=== PATIENT | male | born 1990 | race Caucasian/White ===

== ENCOUNTER 2019-06-13 09:46 | Inpatient (IN) | payer SELFPAY ==
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
[2019-06-13] MEDS ORDERED: Lactated Ringers 1000 ML Bag* 1,000 ML IV SCH (13:00)
[2019-06-13 13:14] LABS: Hematocrit 40 % (42-52); Hemoglobin 13.6 g/dL (14.0-18.0); Mean Corpuscular HGB Conc 34 g/dL (31-36); Mean Corpuscular Hemoglobin 32 pg (27-31); Mean Corpuscular Volume 94 fL (80-94); Red Blood Count 4.26 10^6 /uL (4.18-5.48); Red Cell Distribution Width 13 % (10-15); White Blood Count 10.9 10^3/uL (3.5-10.8)
[2019-06-13 13:31] LABS: Albumin 3.1 g/dL (3.2-5.2); Albumin/Globulin Ratio 1.6 (1-3); Alkaline Phosphatase 40 U/L (34-104); Anion Gap 5 mmol/L (2-11); BUN/Creatinine Ratio 19.7 (8-20); Blood Urea Nitrogen 23 mg/dL (6-24); CO2 Carbon Dioxide 21 mmol/L (22-32); Calcium 7.4 mg/dL (8.6-10.3); Chloride 108 mmol/L (101-111); EGFR African American 89.8 (>60); EGFR Non-African American 74.2 (>60); Globulin 1.9 g/dL (2-4); Glucose 95 mg/dL (70-100); Potassium 4.1 mmol/L (3.5-5.0); Sodium 134 mmol/L (135-145)
[2019-06-13 13:36] LABS: Troponin I 15.82 ng/mL (<0.03)
[2019-06-13 13:48] LABS: ALT 3018 U/L (7-52); AST 3063 U/L (13-39); Creatine Kinase 13818 U/L (10-223)
[2019-06-13 13:55] LABS: ABS Lymphocytes 1.9 10^3/ul (1.0-4.8); ABS Monocytes 0.5 10^3/ul (0-0.8); ABS Neutrophils 8.5 10^3/ul (1.5-7.7); Eosinophil % 0.2 %; Mean Platelet Volume 7.7 fL (7.4-10.4); Platelet Count 99 10^3/uL (150-450)
[2019-06-13] MEDS ORDERED: cefTRIAXone(*) 1 GM in NS 0.9% 50 ML* 50 ML IVPB SCH (14:00)
[2019-06-13 14:27] LABS: CKMB ng/mL > 297.0 ng/mL (0.6-6.3)
[2019-06-13] MEDS: Lactated Ringers 1000 ML Bag* 1,000 ML IV SCH ×2 (14:43→23:36)
--- NOTE | 2019-06-13 16:06 | ECHO ---
*[facility]* [place] [address] Fax #: [phone] Limited Transthoracic Echocardiogram Patient: Reinier Pham : 1990 Study Date: 06/13/2019 Age: 29 Gender: M HR: 85 bpm Height: 68.1 in /173 cm BSA: 1.98 m^2 Weight: 176 lb /80 kg BMI: 26.7 kg/m^2 *[employer]: * Karly Shelley [facility] *Referring Physician: * Steven Kebede MD *Reading Physician: * Steven Kebede MD Indications: Congestive Heart Failure. History: Overdose POTATO PEELER. Conclusions Summary: Limited study, see full echocardiogram from this morning. Markedly positive bubble study with large volume right to left shunting of uncertain source. The LVEF appears qualitatively normal on apical 4 chamber view only. The right ventricle appears dilated and dysfunctional. Study data: Transthoracic echocardiogram, limited study. Procedure: Transthoracic echocardiography was performed. Image quality was good. A bubble study was performed. Location: Bedside. Patient status: Inpatient. Patient room number: 431. Rhythm: Normal sinus rhythm. Findings Atrial septum: An ASD is demonstrated by color Doppler and agitated saline contrast. Bubble Study image 1. Prepared and electronically signed by Steven Kebede MD 06/13/2019 16:05
--- NOTE | 2019-06-13 16:34 | CONSULT ---
Subjective Date of Service: 06/13/19 Interval History: Date of transfer from [facility] 06/13/2019 Service: Hospitalist PCP: None CC: Drug over, unresponsiveness Reason for consult: Abnormal echocardiogram and EKG HPI Reinier Pham is a 29 year old man with a history of polysubstance abuse. He was in his usual state of health recently. 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 He was found with a drug overdose and unresponsive that responded to IV narcan reportedly (had no opiates on to screen). The exact substance in form of a pill he took is uncertain. He was found with multisystem organ dysfunction including ZHENG, ischemic hepatitis, rhabdomyolosis (CK out of proportion to troponin) and myocyte injury. Clinical presentation was not consistent with a type 1 plaque disruption [place]. Presumed mechanism was related prolonged hypoxia. He was given 5 liters of saline originally that continues and is currently with ascites and pleural effusion. Past Medical History Drug abuse, heroin overdose last year Past Surgical History: Cleft palate repair during childhood. Past Family History: Father had liver cancer at the age of 30+, he was a heavy alcoholic. Mother had no significant medical problems. Past Social History: Lives with his fiance and 2 kids in [facility]. Drug abuse He denies any significant alcohol use allergies: nkda Medications Active Medications: Lactated Ringer's (Lactated Ringers 1000 Ml Bag*) 1,000 mls @ 250 mls/hr IV PER RATE [facility] Last Admin: 06/13/19 14:43 Dose: 250 mls/hr Ceftriaxone Sodium 1 gm/ (Sodium Chloride) 50 mls @ 100 mls/hr IVPB Q24H [facility] Last Admin: 06/13/19 14:43 Dose: 100 mls/hr Review of Systems - Measurements Intake and Output: Intake and Output Last 24 Hours 06/11/19 06/12/19 06/13/19 06/14/19 06:59 06:59 06:59 06:59 Intake Total 75 Balance 75 Weight 176 lb Intake: IV Fluids 25 ABX 25 IVPB 50 ABX 50 Oral 0 - Review of Systems Constitutional Symptoms: Negative: Weakness, Fatigue Dermatology: Negative: Rash, Skin Lesions HEENT: Negative: Change in Hearing, Vertigo Eyes: Negative: Change in Vision, Double Vision Thyroid: Negative: Palpitations, Weight Loss, Weight Gain Pulmonary: Negative: Exercise Intolerance, Home Oxygen Cardiology: Negative: Chest Pain, Shortness of Breath, Palpitations, Swelling of Ankles, Peripheral Vascular Dis, Edema, Faintness, Syncope, Claudication, Paroxysmal Nocturnal Dyspnea, Orthopnea Gastroenterology: Negative: Blood in Stools, Haematemesis, Melena Genital - Urinary: Negative: Dysuria, Hematuria Musculoskeletal: Negative: Joint Pain, Joint Stiffness Endocrinology: Negative: Polydipsia, Polyuria Hematologic/Lymphatic: Negative: Use of Anticoagulant, Use of Antiplatelet Drugs Neurology: Negative: Hx of Stroke\TIA, Hx Seizures Psychiatry: Negative: Unusual Anxiety, Suicidal Ideation Allergic/Immunologic: Negative: Hx HIV, Immunocompromise Review of Systems Statement: All other review of systems negative, unless stated above. Objective Vital Signs: Temp Pulse Resp BP Pulse Ox 98.3 F 89 20 118/44 91 06/13/19 15:06/13/19 15:06/13/19 15:06/13/19 15:06/13/19 15:09 Oxygen Devices in Use Now: None Appearance: nad, not ill appearing Ears/Nose/Mouth/Throat: Clear Oropharnyx, Mucous Membranes Moist Neck: NL Appearance and Movements; NL JVP, Trachea Midline Respiratory: Symmetrical Chest Expansion and Respiratory Effort, Clear to Auscultation Cardiovascular: NL Sounds; No Murmurs; No JVD, RRR, No Edema Abdominal: NL Sounds; No Tenderness; No Distention Extremities: No Edema Skin: No Rash or Ulcers Neurological: Alert and Oriented x 3 Laboratory Results: 06/13/19 12:57 06/13/19 12:57 Total Bilirubin 0.70 mg/dL (0.2-1.0) 06/13/19 12:57 AST 3063 U/L (13-39) H 06/13/19 12:57 ALT 3018 U/L (7-52) H 06/13/19 12:57 Alkaline Phosphatase 40 U/L (34-104) 06/13/19 12:57 CK-MB (CK-2) > 297.0 ng/mL (0.6-6.3) H 06/13/19 12:57 Total Protein 5.0 g/dL (6.4-8.9) L 06/13/19 12:57 Albumin 3.1 g/dL (3.2-5.2) L 06/13/19 12:57 Globulin 1.9 g/dL (2-4) L 06/13/19 12:57 Albumin/Globulin Ratio 1.6 (1-3) 06/13/19 12:57 06/13/19 12:57 Troponin I 15.82 H* Initial labs 06/12/2019 cr 2.7 ast 1153, alt 1101, 0.17, wbc 23 album 3 3. hepatitis screen negative urine drug screen (06/11): amphetamine positive, benzo positive (the results from [facility] not clear) Diagnostic Imaging: Exam Date: 06/13/19 CT ABD/PEL W/O IMPRESSION: Small to moderate amount of ascites is noted. Likely hepatic steatosis. Bilateral pleural effusions are noted. TTE 06/12: mild decrease in global wall motion, EF 45-50%, Moderate RV dilation with mild to moderately reduced right ventricular function and mild septal abnormality RV pressure and/or volume overload normal estimated PASP by TR velocity with bubble study later Markedly + bubble study with normal color flow on septum EKG Data: ekg today shows NSR, long qtc, right precordial t wave changes Assessment/Plan 1. Multisystem organ dysfunction including myocyte injury secondary to drug overdose with presumed hypoxia mechanism - Improving 2. 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 Polysubstance drug abuse. I am not sure how much of the RV dysfunction is acute vs. chronic. The shunt is concerning for a chronic component although acute (or repetitive) central sleep apnea related to [employer] depressants may have also been playing a role in the RV dysfunction. A congenital intracardiac shunt such as anomalous pulmonary vein return or an ASD is very possible but the latter was not appreciated on the transthoracic color doppler imaging. There is some laboratory and imaging evidence for chronic liver disease. For now would recommend a CT pulmonary angiogram (discussed with Dr. Reeder) to begin evaluation for hepatopulmonary syndrome. Given the fact that he was entirely asymptomatic prior to admission an urgent PAWEL, evaluation for shunt closure, etc is not needed. He was counseled that any further elicit substance abuse (even in the near future) can increase the risk of things including but not limited to . From a cardiac standpoint, regardless of CT findings, will arrange cardiology follow up and plan on repeat transthoracic echocardiogram in about 1 month with substance abuse abstinence to re-evaluate his RV size and function to help guide further evaluation. Would begin to keep I/O negative in the near future. An order for a repeat EKG tomorrow to re-evaluate QTc was placed Thank you for allowing me to participate in the cardiovascular care of this patient. Please do not hesitate to contact me with questions or concerns.
[2019-06-13 16:39] LABS: Troponin I 12.46 ng/mL (<0.03)
[2019-06-13 16:49] LABS: Creatine Kinase 12890 U/L (10-223)
[2019-06-13] MEDS ORDERED: Ondansetron INJ* 2 MG/ML VIAL IV PRN (18:30)
[2019-06-13 19:02] LABS: Urine Appearance Clear; Urine Bilirubin Negative (Negative); Urine Blood Negative (Negative); Urine Color Yellow; Urine Glucose Negative (Negative); Urine Ketones 1+ (Negative); Urine Nitrite Negative (Negative); Urine Protein Negative (Negative); Urine Specific Gravity 1.021 (1.010-1.030); Urine Urobilinogen Negative (Negative)
[2019-06-14 04:04] LABS: ABS Lymphocytes 1.8 10^3/ul (1.0-4.8); ABS Monocytes 0.5 10^3/ul (0-0.8); ABS Neutrophils 6.5 10^3/ul (1.5-7.7); Eosinophil % 0.5 %; Hematocrit 38 % (42-52); Hemoglobin 13.1 g/dL (14.0-18.0); Lymphocyte % 19.8 %; Mean Corpuscular HGB Conc 35 g/dL (31-36); Mean Corpuscular Hemoglobin 33 pg (27-31); Mean Corpuscular Volume 94 fL (80-94); Mean Platelet Volume 7.5 fL (7.4-10.4); Nucleated Red Blood Cells % 0.1; Platelet Count 89 10^3/uL (150-450); Red Blood Count 4.01 10^6 /uL (4.18-5.48); Red Cell Distribution Width 13 % (10-15); White Blood Count 8.9 10^3/uL (3.5-10.8)
[2019-06-14 04:09] LABS: INR 1.47 (0.82-1.09)
[2019-06-14 04:21] LABS: Albumin 3.1 g/dL (3.2-5.2); Albumin/Globulin Ratio 1.7 (1-3); BUN/Creatinine Ratio 16.2 (8-20); EGFR African American 108.9 (>60); Globulin 1.8 g/dL (2-4); Potassium 4.1 mmol/L (3.5-5.0); Total Protein 4.9 g/dL (6.4-8.9)
[2019-06-14] MEDS: Lactated Ringers 1000 ML Bag* 1,000 ML IV SCH ×4 (06:19→22:13)
[2019-06-14] MEDS ORDERED: Furosemide IV* 10 MG/ML 2 ML VIAL (20 MG) IV ONE (07:11)
--- NOTE | 2019-06-14 07:17 | PN ---
Hospitalist Progress Note Date of Service: 06/14/19 Patient gained weight significantly from 79kg to 82kg. I/O 4179/800ml Echocardiogram yesterday has already shown RV overload Plan: be cautious with I/O IV lasix 20mg once Aim for negative balance.
--- NOTE | 2019-06-14 11:42 | PN ---
Subjective Date of Service: 06/14/19 Interval History: Mr. Pham is feeling a little better today. He reports urine output and color has improved back to normal. Has a mild cough with deep breathing and a bit of a headache. Aching on back and buttocks are improved from yesterday. Denies CP, SOB. No concerns from nursing. Family History: Unchanged from Admission Social History: Unchanged from Admission Past Medical History: Unchanged from Admission Objective Active Medications: Lactated Ringer's (Lactated Ringers 1000 Ml Bag*) 1,000 mls @ 250 mls/hr IV PER RATE [facility] Ceftriaxone Sodium 1 gm/ (Sodium Chloride) 50 mls @ 100 mls/hr IVPB Q24H [facility] Ondansetron HCl (Zofran Inj*) 4 mg IV Q4H PRN nausea Vital Signs - 8 hr 06/14/19 06/14/19 07:14 08:00 Temperature 97.3 F Pulse Rate 80 Respiratory 18 20 Rate Blood Pressure 112/72 (mmHg) O2 Sat by Pulse 90 Oximetry Oxygen Devices in Use Now: None Appearance: Young adult male lying in bed in NAD Ears/Nose/Mouth/Throat: Mucous Membranes Moist Neck: NL Appearance and Movements; NL JVP, Trachea Midline Respiratory: Symmetrical Chest Expansion and Respiratory Effort, Clear to Auscultation Cardiovascular: NL Sounds; No Murmurs; No JVD, RRR Extremities: No Edema Neurological: Alert and Oriented x 3 Lines/Tubes/Other Access: Clean, Dry and Intact Peripheral IV Nutrition: Taking PO's Result Diagrams: 06/14/19 03:55 06/14/19 03:55 Assess/Plan/Problems-Billing Assessment: Mr. Pham is a 29 yo M with PMH of heroin abuse and overdose last year; presented to [facility] ED after being found down in his car after an unknown ingestion, subsequently transferred to [facility] d/t rising trops and CK. - Patient Problems (1) Rhabdomyolysis Code(s): M62.82 - RHABDOMYOLYSIS Comment: - Found in car, thought to be down all night (8+ hours?) - CK continues to trend down - Continue aggressive IV hydration (2) Right ventricular dysfunction Code(s): I51.9 - HEART DISEASE, UNSPECIFIED Comment: - Acute (apnea) vs chronic (congential shunting) - Attempt to keep I&O negative - Will check CTA for hepatopulmonary syndrome when CK <5,000 - Outpatient f/u with Cardiology for repeat echo in 1 month - Continue furosemide (3) Elevated troponin Code(s): R79.89 - OTHER SPECIFIED ABNORMAL FINDINGS OF BLOOD CHEMISTRY Comment : - Peaked at 23 at [facility], now trending down - Secondary to drug ingestion - Appreciate Cardiology consult - QTc improving (4) Transaminitis Code(s): R74.0 - NONSPEC ELEV OF LEVELS OF TRANSAMNS & LACTIC ACID DEHYDRGNSE Comment: - LFTs trending down - Secondary to ingestion, but suspect there may be some component of chronic liver disease - CT showing small to moderate ascites and likely hepatic steatosis (5) Ingestion of unknown medication Code(s): T50.901A - POISONING BY UNSP DRUG/MEDS/BIOL SUBST, ACCIDENTAL, INIT Comment: - Patient reported he thought he was given Valium by a friend - Woke after receiving Narcan, so question if there was a narcotic ingestion - Tox screen at [facility] positive for amphetamines and benzos - Suspect multisystem organ dysfunction is d/t hypoxia, hypotension, hypothermia from ingestion (6) Thrombocytopenia Code(s): D69.6 - THROMBOCYTOPENIA, UNSPECIFIED Comment: - Stable - No evidence of hemolytic process by Pathologist interpretation (7) ZHENG (acute kidney injury) Code(s): N17.9 - ACUTE KIDNEY FAILURE, UNSPECIFIED Comment: - Resolved (8) DVT prophylaxis Code(s): Z29.9 - ENCOUNTER FOR PROPHYLACTIC MEASURES, UNSPECIFIED Comment: - SCDs (9) Full code status Code(s): Z78.9 - OTHER SPECIFIED HEALTH STATUS Comment: Status and Disposition: Inpatient. Anticipate d/c home when medically stable, hopefully tomorrow if labs continue to improve. Attending: Janay Elizabeth
--- NOTE | 2019-06-14 16:24 | PN ---
Subjective Date of Service: 06/14/19 Interval History: f/u RV dysfunction, right to left shunt, multisystem organ dysfunction/myocyte injury secondary to drug overdose late entry, seen this morning feels well no cp or dyspnea given diuretic with good effect ekg this AM reviewed, qtc improved, right precordial TWI present June 2018 as well Medications Active Medications: Lactated Ringer's (Lactated Ringers 1000 Ml Bag*) 1,000 mls @ 250 mls/hr IV PER RATE [facility] Last Admin: 06/14/19 12:07 Dose: 250 mls/hr Ondansetron HCl (Zofran Inj*) 4 mg IV Q4H PRN PRN Reason: nausea Objective Vital Signs: Temp Pulse Resp BP Pulse Ox 98 F 79 22 118/79 94 06/14/19 15:48 06/14/19 15:48 06/14/19 15:48 06/14/19 15:48 06/14/19 15:48 Oxygen Devices in Use Now: None Appearance: nad, not ill appearing Ears/Nose/Mouth/Throat: Clear Oropharnyx, Mucous Membranes Moist Neck: NL Appearance and Movements; NL JVP, Trachea Midline Respiratory: Symmetrical Chest Expansion and Respiratory Effort, Clear to Auscultation Cardiovascular: NL Sounds; No Murmurs; No JVD, RRR, No Edema Abdominal: NL Sounds; No Tenderness; No Distention Extremities: No Edema Skin: No Rash or Ulcers Neurological: Alert and Oriented x 3 Laboratory Results: 06/14/19 03:55 06/14/19 03:55 INR (Anticoag Therapy) 1.47 (0.82-1.09) H 06/14/19 03:54 Total Bilirubin 1.00 mg/dL (0.2-1.0) 06/14/19 03:55 AST 1961 U/L (13-39) H 06/14/19 03:55 ALT 2693 U/L (7-52) H 06/14/19 03:55 Alkaline Phosphatase 40 U/L (34-104) 06/14/19 03:55 CK-MB (CK-2) > 297.0 ng/mL (0.6-6.3) H 06/13/19 12:57 Total Protein 4.9 g/dL (6.4-8.9) L 06/14/19 03:55 Albumin 3.1 g/dL (3.2-5.2) L 06/14/19 03:55 Globulin 1.8 g/dL (2-4) L 06/14/19 03:55 Albumin/Globulin Ratio 1.7 (1-3) 06/14/19 03:55 06/13/19 06/13/19 12:57 16:10 Troponin I 15.82 H* 12.46 H* Diagnostic Imaging: Exam Date: 06/13/19 CT ABD/PEL W/O IMPRESSION: Small to moderate amount of ascites is noted. Likely hepatic steatosis. Bilateral pleural effusions are noted. TTE 06/12: mild decrease in global wall motion, EF 45-50%, Moderate RV dilation with mild to moderately reduced right ventricular function and mild septal abnormality RV pressure and/or volume overload normal estimated PASP by TR velocity with bubble study later Markedly + bubble study with normal color flow on septum EKG Data: ekg today shows NSR, long qtc, right precordial t wave changes Assessment/Plan Once CT pulmonary angiogram performed patient can be discharged from a cardiac standpoint Will plan on repeating an echocardiogram in ~[address] normal and RV still dysfunctional at that time will proceed with PAWEL to help localize shunt if he's not felt to have significant primary liver disease (i.e. not due to RV failure which seems unlikely in that he was asymptomatic prior to admission). If he is felt to have primary liver disease, given his family history would consider a hereditary condition. He was again counseled today on complete illicit substance abstinence to reduce the risk of things including but not limited to . Will sign off, please reconsult as needed
[2019-06-15] MEDS: Lactated Ringers 1000 ML Bag* 1,000 ML IV SCH ×2 (03:00→10:57)
[2019-06-15 06:09] LABS: ABS Eosinophils 0.1 10^3/ul (0-0.6); ABS Lymphocytes 1.4 10^3/ul (1.0-4.8); ABS Monocytes 0.7 10^3/ul (0-0.8); ABS Neutrophils 5.2 10^3/ul (1.5-7.7); Eosinophil % 0.8 %; Hematocrit 39 % (42-52); Hemoglobin 13.4 g/dL (14.0-18.0); Lymphocyte % 18.8 %; Mean Corpuscular HGB Conc 34 g/dL (31-36); Mean Corpuscular Hemoglobin 32 pg (27-31); Mean Corpuscular Volume 94 fL (80-94); Mean Platelet Volume 8.1 fL (7.4-10.4); Nucleated Red Blood Cells % 0.1; Platelet Count 95 10^3/uL (150-450); Red Blood Count 4.17 10^6 /uL (4.18-5.48); Red Cell Distribution Width 13 % (10-15); White Blood Count 7.4 10^3/uL (3.5-10.8)
[2019-06-15 06:27] LABS: Albumin 3.4 g/dL (3.2-5.2); Albumin/Globulin Ratio 1.8 (1-3); BUN/Creatinine Ratio 15.1 (8-20); Calcium 8.3 mg/dL (8.6-10.3); EGFR African American 128.1 (>60); EGFR Non-African American 105.9 (>60); Globulin 1.9 g/dL (2-4); Potassium 4.1 mmol/L (3.5-5.0); Total Bilirubin 1.7 mg/dL (0.2-1.0); Total Protein 5.3 g/dL (6.4-8.9)
[2019-06-15] MEDS ORDERED: Furosemide IV* 10 MG/ML 2 ML VIAL (20 MG) IV SLOW PU ONE (08:36)
[2019-06-15] MEDS ORDERED: Iohexol 350* (CONTRAST) 500 ML MDV IV ONE (11:25)
[2019-06-15] MEDS ORDERED: Furosemide IV* 10 MG/ML VIAL (40 MG) IV SLOW PU ONE (12:19)
[2019-06-15 14:01] VITALS: BP 140/90
--- NOTE | 2019-06-15 17:30 | DS ---
CC: Dr. Steven Kebede* DISCHARGE SUMMARY: DATE OF ADMISSION: 06/13/19 DATE OF DISCHARGE: 06/15/19 PRIMARY CARE PROVIDER: None. ATTENDING PHYSICIAN: Dr. Jeremy Rsos* (dictated by Lisa Cohen NP). PRIMARY DIAGNOSES: 1. Rhabdomyolysis. 2. Right ventricular dysfunction. 3. Troponinemia. 4. Transaminitis. 5. Unknown medication ingestion. 6. Acute kidney injury. SECONDARY DIAGNOSIS: 1. History of drug abuse and overdose. STUDIES WHILE IN THE HOSPITAL: 1. Renal bladder ultrasound on 06/13/19 reads as no hydronephrosis is noted. A small amount of ascites is present. Moderate degree of postvoid residual of 175 mL. 2. EKG on 06/13/19 shows normal sinus rhythm with a rate of 89, inverted T- waves in V1 through V3, QTc 479. 3. Abdomen and pelvis CT on 06/13/19 reads as small to moderate amount of ascites is noted. Likely hepatic steatosis. Bilateral pleural effusions are noted. 4. Transthoracic echocardiogram on 06/13/19 reads as left ventricular cavity size is normal. Mild concentric hypertrophy of the left ventricle. Mild decrease in global wall motion. Minimally abnormal septal wall motion abnormality likely consistent with RV pressure and/or volume overload. PASP is estimated normal by TR velocity. Visual EF is 45% to 50%. Right atrial cavity is mild to moderately dilated. Right ventricular cavity is moderately dilated. Mild to moderately reduced right ventricular function. No functionally significant valvular abnormality is noted. No prior studies available for comparison at the time of interpretation. 5. Limited transthoracic echocardiogram on 06/13/19 reads as limited study, see full echocardiogram from this morning. Markedly positive bubble study with large volume right to left shunting of uncertain source. The LVEF appears qualitatively normal on apical 4-chamber view only. The right ventricle appears dilated and dysfunctional. 6. EKG on 06/14/19 shows normal sinus rhythm with a rate of 82, inverted T- waves in V1 through V3, QTc 513. 7. EKG on 06/14/19 shows normal sinus rhythm with a rate of 80, inverted T- waves in V1 through V3, QTc 492. 8. Chest CTA on 06/15/19 reads as no evidence for pulmonary embolism. No compelling dilation of the subpleural pulmonary vessels, which may be seen with hepatopulmonary syndrome in the setting of cirrhosis. Large right and moderate left dependent pleural effusions with proportional atelectasis. Near complete atelectasis of the right lower lobe. Nonspecific enlarged right paratracheal lymph node. CONSULTATION WHILE IN THE HOSPITAL: 1. Dr. Kebede from Cardiology. HISTORY OF PRESENT ILLNESS AND HOSPITAL COURSE: Mr. Pham is a 29-year-old male with no significant past medical history except for heroin use and overdose , who presented initially to [facility] on 06/12/19 after being found unresponsive in his car. Reportedly, the patient took a blue pill, which he thought was Valium. He was found the next morning in his car and was revived with Narcan. He was transferred from [facility] to [facility] where he was noted to have rising troponins. On admission to this facility, CK was noted to be 13,000, troponin was 15, AST and ALT were greater than 3000. The patient was admitted by the hospitalist service. Cardiology was consulted and the patient was seen by Dr. Kebede on 06/13/19, at which point he thought that the multisystem organ dysfunction and myocyte injury was secondary to drug overdose due to presumed hypoxia mechanism. The patient was noted to have right ventricular failure with a right to left shunt. It was unclear if the right ventricular dysfunction was acute or chronic. Cardiology recommended a CTA of the chest to evaluate for hepatopulmonary syndrome and follow up with Cardiology. Due to concern for kidney injury, it was necessary to wait until CK drops below 5000 prior to proceeding with CTA. As of this morning, the patient's CK was below 5000 and so he did have a CTA this morning with results noted above. There was some concern for pleural effusions, although the patient is known to have RV dysfunction at this point and does not appear volume overloaded. He did receive 20 mg of IV Lasix yesterday and another 60 mg of IV Lasix today. He has no respiratory symptoms and is saturating well on room air at rest and with ambulation, so I suspect that these pleural effusions are simply due to RV dysfunction and will continue to resolve spontaneously in this young, otherwise healthy adult. Dr. Kebede did see the patient again yesterday and advised that he was cleared for discharge from a cardiology standpoint after CTA was performed. On exam, the patient is alert and oriented x4 with no focal neurological deficits. Heart has a regular rate and rhythm without murmurs, rubs, or gallops. Lungs are clear to auscultation without rhonchi, wheezes, or rales. There is no edema. Abdomen is soft, nontender. Physical exam is otherwise benign. Mr. Pham is stable for discharge. Most recent vitals are as follows: Temp 98.9, heart rate 63, respiratory rate 16, oxygen saturation 98% on room air, blood pressure 140/90. DISCHARGE MEDICATIONS: None. DISCHARGE PLAN: Mr. Pham will be discharged home. Activity will be as tolerated. Diet will be regular as tolerated. He was not taking any medications prior to admission and is not being discharged on any medications at this time. Again, the patient was given IV Lasix today prior to discharge due to pleural effusions, though I do not think he will need any diuresis going forward and I anticipate that any remaining pleural effusion will resolve spontaneously. He does not have a PCP and so he has been referred to our [facility] for PCP followup. He should have followup with Cardiology. Dr. Kebede has recommended a repeat echocardiogram in 1 month. If the patient is still noted to have RV dysfunction at that time, they will likely proceed with transesophageal echocardiogram to help localize shunt. All lab work is resolving at this point and I do not see any urgent need for repeat blood work, though the patient would benefit from repeat lab work in the next few weeks to ensure resolution of transaminitis. He should return to the emergency room or nearest hospital for any worsening of symptoms, shortness of breath, lightheadedness, dizziness, chest discomfort, high fevers, chills, night sweats , loss of consciousness, or any other worrisome signs or symptoms. DISCHARGE CONDITION: Stable. DISCHARGE DISPOSITION: Home. This is a summarized report of a complex medical history and hospital stay. For further details, please see the entire medical record. TIME SPENT: Approximately 40 minutes was spent on this discharge. LISA COHEN NP [id number]/[facility] #: [id number] [place]
== END 2019-06-15 14:55 | disposition home or self-care (01) | DRG 315 ==
LOC: MEDTELE 10:56 → OBSVTOIN 10:56 → UNDOADMOB 10:56
PROVIDERS: ADMIT Family Medicine; ATTEND Internal Medicine
DX: S26.99XA Other injury of heart, unspecified with or without hemopericardium, initial encounter (principal); M62.82 Rhabdomyolysis; N17.9 Acute kidney failure, unspecified; R18.8 Other ascites; J98.11 Atelectasis; K71.10 Toxic liver disease with hepatic necrosis, without coma; D69.6 Thrombocytopenia, unspecified; K76.0 Fatty (change of) liver, not elsewhere classified; I51.9 Heart disease, unspecified; R09.02 Hypoxemia; R74.0 Nonspecific elevation of levels of transaminase and lactic acid dehydrogenase [LDH]; T50.901A Poisoning by unspecified drugs, medicaments and biological substances, accidental (unintentional), initial encounter; F11.10 Opioid abuse, uncomplicated; R74.8 Abnormal levels of other serum enzymes; R31.9 Hematuria, unspecified; D72.829 Elevated white blood cell count, unspecified; Y92.89 Other specified places as the place of occurrence of the external cause; Z80.0 Family history of malignant neoplasm of digestive organs; Z81.1 Family history of alcohol abuse and dependence
CPT/HCPCS: 36415; 71275; 74176; 76770; 80053; 81003; 82550; 82553; 84484; 85025; 85060; 85610; 87040; 93005; 93308; J0696; J1940; Q9967